=== PATIENT | female | born 1985 | race Caucasian/White ===

== ENCOUNTER 2020-01-24 16:31 | Emergency (ER) | payer OTHER ==
[~2020-01-24] VITALS: Ht 157.5 cm; Wt 106.6 kg
[2020-01-24 17:22] LABS: BASOPHILS # (AUTO) 0.1 (0.0-0.1); BASOPHILS % 0.5 % (0.0-1.0); EOSINOPHILS # (AUTO) 0.3 (0.0-0.4); EOSINOPHILS % 2.1 % (0.0-6.0); HEMATOCRIT 40.2 % (34.2-44.1); HEMOGLOBIN 13.2 g/dL (12.0-16.0); LYMPHOCYTES # (AUTO) 4.6 (1.0-3.2); LYMPHOCYTES % 36.7 % (18.0-39.1); MEAN CORPUSCULAR HEMOGLOBIN 27.3 pg (28-32); MEAN CORPUSCULAR HGB CONC 32.8 g/dL (31-35); MEAN CORPUSCULAR VOLUME 83.2 fL (81-99); MONOCYTES # (AUTO) 0.9 (0.2-0.8); MONOCYTES % 7.2 % (4.4-11.3); NEUTROPHILS # (AUTO) 6.7 (2.1-6.9); PLATELET COUNT 314 x10e3/uL (140-360); RED BLOOD COUNT 4.83 x10e6/uL (3.6-5.1); RED CELL DISTRIBUTION WIDTH 12.9 % (11.7-14.4)
[2020-01-24 18:01] LABS: BILIRUBIN,URINE NEGATIVE (NEGATIVE); CLARITY,URINE SL CLOUDY (CLEAR); COLOR,URINE YELLOW (YELLOW); KETONES,URINE NEGATIVE (NEGATIVE); LEUKOCYTE ESTERASE ,URINE NEGATIVE (NEGATIVE); NITRITE,URINE NEGATIVE (NEGATIVE); PROTEIN,URINE DIPSTICK NEGATIVE (NEGATIVE); URINE UROBILINOGEN 0.2 mg/dL (0.2 - 1)
[2020-01-24 18:07] LABS: BACTERIA,URINE RARE /HPF; EPITHELIAL CELLS,URINE FEW /LPF
[2020-01-24] MEDS ORDERED: PYRIDIUM100 MG PO (18:23)
[2020-01-24] MEDS ORDERED: MACROBID 100 M100 MG PO (18:23)
--- NOTE | 2020-02-13 14:54 | Emergency Department Note ---
History of Present Illnes History of Present Illness Chief Complaint: General Medicine Complaints History of Present Illness This is a 34 year old female arrived to the ED with complaints of a prolonged menstrual cycle, patient states bleeding is intermittent. Patient denies any weakness, nausea vomiting or lightheadedness. PATIENT IN FROM HOME WITH COMPLAINTS OF ABNORMAL PERIOD X 11 DAYS; STATES THAT SHE HAD HER NORMAL MENSTRUAL CYCLE X 4 DAYS AND THEN HAS BEEN SPOTTING EVER SINCE; PATIENT ALERT AND ORIENTED, RESP EVEN ABD NONLABORED, AMBULATORY WITHOUT ASSISTANCE, RATES PAIN 5/10, ALSO STATES THAT SHE IS OUT OF HER ANXIETY MEDICATION AND IS UNABLE TO BE A REFILL Historian: Patient Arrival Mode: Car Severity: mild Duration (how long): day(s) Progression: waxing and waning Chronicity: recurrent Relieving factors: none Exacerbating factors: none Past Medical/Family History Physician Review I have reviewed the patient's past medical and family history. Any updates have been documented here. Past Medical History Recent Fever: No Clinical Suspicion of Infectio: No New/Unexplained Change in Ment: No Past Medical History: Anxiety Other Medical History: ADHD Past Surgical History: Other Surgery: NASAL SURGERIES X 2 Social History Smoking Cessation: Never Smoker Counseling Performed: No Alcohol Use: None Any Illegal Drug Use: No TB Exposure/Symptoms: No Physically hurt or threatened: No Family History Family history of heart diseas: No Other Last Tetanus: UTD Any Pre-Existing Lines (PICC,: No Is patient up to date on immun: Yes Last Flu: utd Last Pneumovax: na Review of Systems Review of Systems Constitutional: Reports no symptoms EENTM: Reports no symptoms Cardiovascular: Reports no symptoms Respiratory: Reports no symptoms Gastrointestinal: Reports no symptoms Genitourinary: Reports as per HPI Musculoskeletal: Reports no symptoms Integumentary: Reports no symptoms Neurological: Reports no symptoms Psychological: Reports no symptoms Endocrine: Reports no symptoms Hematological/Lymphatic: Reports no symptoms Physical Exam Related Data Allergies: Coded Allergies: No Known Allergies (Unverified , 01/24/20) Triage Vital Signs Vital Signs Date Time Temp Pulse Resp B/P (MAP) Pulse Ox O2 Delivery O2 Flow Rate FiO2 01/24/20 16:51 96.9 94 18 154/100 97 Vital signs reviewed: Yes Physical Exam CONSTITUTIONAL Constitutional: Present well-developed, Present well-nourished HENT HENT: Present normocephalic, Present atraumatic, Present oropharynx clear/moist, Present nose normal HENT L/R: Present left ext ear normal, Present right ext ear normal EYES Eyes: Reports PERRL, Reports conjunctivae normal NECK Neck: Present ROM normal PULMONARY Pulmonary: Present effort normal, Present breath sounds normal CARDIOVASCULAR Cardiovascular: Present regular rhythm, Present heart sounds normal, Present capillary refill normal, Present normal rate GASTROINTESTINAL Abdominal: Present soft, Present nontender, Present bowel sounds normal GENITOURINARY Genitourinary: Present exam deferred SKIN Skin: Present warm, Present dry MUSCULOSKELETAL Musculoskeletal: Present ROM normal NEUROLOGICAL Neurological: Present alert, Present oriented x 3, Present no gross motor or sensory deficits PSYCHOLOGICAL Psychological: Present mood/affect normal, Present judgement normal Results Laboratory Result Diagram: 01/24/20 1700 Lab results reviewed: Yes Assessment & Plan Medical Decision Making MDM 34-year-old well-appearing female arrived to the ED with dysfunction uterine bleeding, normal hemoglobin/hematocrit noted. Patient otherwise admitted in stable. Recommend outpatient TECHNOLOGY TEACHER follow-up for further evaluation of her dysfunctional uterine bleeding. She understands malignancy, fibroids and or hormonal imbalance are just a few possible diagnoses as a cause of her bleeding. Assessment & Plan Final Impression: (1) Dysfunctional uterine bleeding Depart Disposition: HOME, SELF-CARE Last Vital Signs Date Time Temp Pulse Resp B/P (MAP) Pulse Ox O2 Delivery O2 Flow Rate FiO2 01/24/20 18:33 96.6 73 18 135/87 100 Home Meds Active Scripts Phenazopyridine Hcl (PYRIDIUM) 100 Mg Tablet, 100 MG PO TID, #9 TAB Prov:MAGDIEL PUGA, DO 01/24/20 Nitrofurantoin Monohyd/M-Cryst (MACROBID 100 MG CAPSULE) 100 Mg Capsule, 100 MG PO BIDWM, #10 CAP Prov:MAGDIEL PUGA, DO 01/24/20 MAGDIEL PUGA, Feb 13, 2020 14:54
== END 2020-01-24 18:33 | disposition home or self-care (01) ==
LOC: ER 16:31
DX: N93.8 Other specified abnormal uterine and vaginal bleeding (principal); F41.9 Anxiety disorder, unspecified; F90.9 Attention-deficit hyperactivity disorder, unspecified type
CPT/HCPCS: 36415; 81001; 85025; 99283

== ENCOUNTER 2020-08-27 13:59 | Emergency (ER) | payer OTHER ==
[~2020-08-27] VITALS: Ht 157.5 cm; Wt 97.5 kg
[~2020-08-27 13:59] MED LIST: MACROBID 100 M100 MG PO; PYRIDIUM100 MG PO
== END 2020-08-27 14:30 | disposition home or self-care (01) ==
LOC: ER 14:15
DX: S06.0X9A Concussion with loss of consciousness of unspecified duration, initial encounter (principal); W18.31XA Fall on same level due to stepping on an object, initial encounter; F90.9 Attention-deficit hyperactivity disorder, unspecified type; Y92.003 Bedroom of unspecified non-institutional (private) residence as the place of occurrence of the external cause
CPT/HCPCS: 99282